=== PATIENT | female | born 1985 | race Caucasian/White ===

== ENCOUNTER 2025-01-26 00:59 | Emergency (ER) | payer MEDICAID ==
[~2025-01-26] VITALS: Ht 170.2 cm; Wt 59.0 kg
[2025-01-26 02:32] LABS: *BILIRUBIN,URIN NEGATIVE (NEGATIVE); *BLOOD, URINE 2+ (NEGATIVE); *CLARITY,URINE CLEAR (CLEAR); *COLOR,URINE YELLOW (YELLOW); *KETONES,URINE NEGATIVE (NEGATIVE); *PROTEIN,URINE NEGATIVE (NEGATIVE); *UROBILINOGEN,URINE 0.2 E.U./dl (NORMAL); LEUKOCYTE ESTERASE ,URINE NEGATIVE (NEGATIVE); NITRITE, URINE NEGATIVE (NEGATIVE); UGLUCOSE NEGATIVE (NEGATIVE)
[2025-01-26 02:33] LABS: *URINE HCG, QUAL NEGATIVE (NEGATIVE)
[2025-01-26 02:34] LABS: SQUAMOUS EPITHELIAL CELL,UR FEW /HPF (NONE SEEN)
[2025-01-26] MEDS ORDERED: CEFTRIAXONE /D5W 50ML IVPB **ER PYXIS IV ONE (02:38)
[2025-01-26] MEDS: IV NS 1000 ML 1,000 ML IV ONE (02:55)
[2025-01-26] MEDS: CEFTRIAXONE 1 G in IV DEXTROSE 5% 50 ML IV ONE (02:55)
[2025-01-26 03:00] LABS: PLATELET COUNT (AUTO) 203 K/uL (179-408); RED BLOOD CELL COUNT(AUTO) 4.57 MIL/uL (3.63-4.92); RED CELL DISTRIBUTION WIDTH 13.4 % (12.3-17.7); WHITE BLOOD COUNT (AUTO) 6.0 K/uL (3.8-11.8)
[2025-01-26] MEDS ORDERED: ALBU18HF2 INH (03:02)
[2025-01-26] MEDS ORDERED: AZIT250T PO (03:02)
[2025-01-26] MEDS ORDERED: BENZ-13 PO (03:02)
[2025-01-26 03:15] LABS: ASPARTATE AMINOTRANSFERASE 47.0 U/L (15-37); CREATININE 0.6 mg/dL (0.6-1.3); SODIUM SERUM 136.0 mmol/L (136-145); TOTAL PROTEIN, SERUM 7.4 g/dL (6.4-8.2); UREA NITROGEN, BLOOD 6.0 mg/dL (7-18)
[2025-01-26] MEDS ORDERED: POTASSIUM CHLORIDE 100 ML ONE (03:24)
[2025-01-26] MEDS: POTASSIUM CHLORIDE 50 ML IV SCH (03:26)
[2025-01-26] MEDS ORDERED: POTASSIUM CHLORIDE 20 MEQ TAB.PRT.SR ONE (03:31)
[2025-01-26] MEDS: POTASSIUM CHLORIDE 20 MEQ TAB.PRT.SR PO ONE (03:45)
[2025-01-26 05:47] VITALS: BP 119/84; TEMP 98.2; O2SAT 100
== END 2025-01-26 05:47 | disposition home or self-care (01) ==
LOC: ER 01:05
DX: J18.9 Pneumonia, unspecified organism (principal); M79.10 Myalgia, unspecified site; Z20.822 Contact with and (suspected) exposure to COVID-19
CPT/HCPCS: 99284; 96365; 71045; 96367; 96366; 87426; 87804 ×2; 80053; 81001; 84703; 85025; 87040; 36415; J0696; J3480; J7040; A4606; A4663